=== PATIENT | male | born 1990 ===

== ENCOUNTER → 2021-05-04 12:38 | Outpatient (ROUT) | payer OTHER, SELFPAY ==
[2021-05-04 14:29] LABS: COVID19 -Nasal RAPID Negative (Negative)
== END ==
PROVIDERS: Visit Provider Family Medicine
DX: Z20.822 Contact with and (suspected) exposure to COVID-19 (principal); R52 Pain, unspecified; R68.89 Other general symptoms and signs
CPT/HCPCS: 87635